=== PATIENT | male | born 1990 | race Caucasian/White ===

== ENCOUNTER 2017-12-26 13:58 | Emergency (ER) | payer OTHER ==
[2017-12-26] MEDS ORDERED: NS 1,000 ML IV ONE (14:12)
--- NOTE | 2017-12-26 14:12 | EDPHY ---
H & P Time Seen by Provider: 12/26/17 14:07 HPI/ROS: CHIEF COMPLAINT: Headache HISTORY OF PRESENT ILLNESS: The patient is a 27-year-old male with a remote history of migraine headaches who presents emergency department with new onset headache this morning. The patient states that he was in class when he began to have some strange vision. He felt as though there was a see like shape that stayed in the same place in both eyes. This lasted for about 20-30 minutes. He then developed a headache. The headache was right side of his head radiating to the right posterior part of his head. This is typical of his previous migraine headaches. Patient states he had a brief episode(less than 1 min) of left-sided facial and left hand numbness. This subsequently resolved. Patient was seen at [facility] [employer] [facility] sent to the emergency department for further evaluation. In route patient received both Zofran and Phenergan for nausea and vomiting. The patient states that the medication improved his headache. His headache is now 3/10. No current focal weakness. No neck pain. No fevers or chills. No recent travel. REVIEW OF SYSTEMS: 10 systems were reveiwed and are negative with the exception of the elements mentioned in the history of present illness. Past Medical/Surgical History: Previous migraines Family history: Migraines. No CVA Social history: The patient does not smoke or use drugs Smoking Status: Never smoked Physical Exam: Vitals noted GENERAL: Well-appearing, in no acute distress, alert. HEENT: Eyes normal to inspection, normal pharynx, no signs of dehydration. NECK: Normal, supple. No tenderness to palpation RESPIRATORY: Clear to auscultation bilaterally, no rales, rhonchi or wheezing. CVS: Regular rate and rhythm, no rubs, murmurs, or gallops. ABDOMEN: Soft, nontender, nondistended, no organomegaly. BACK: Normal to inspection, no CVA tenderness. SKIN: Normal color, no rash, warm, dry. No pallor. EXTREMITIES: No pedal edema, no calf tenderness, no Homans sign or cords, no joint swelling. NEURO/PSYCH: Higher functions: Alert and Oriented x3. Normal speech and cognition. Normal mood and affect. Cranial nerves: Normal as tested. Cerebellar: Normal as tested. Good finger to nose, good [id number], normal gait. Peripheral exam: Normal motor exam. Normal sensation. Normal reflexes. Constitutional: Initial Vital Signs Temperature (C) 36.6 C 12/26/17 14:01 Heart Rate 76 12/26/17 14:01 Respiratory Rate 16 12/26/17 14:01 Blood Pressure 159/92 H 12/26/17 14:01 O2 Sat (%) 99 12/26/17 14:01 O2 Delivery Mode Room Air Allergies/Adverse Reactions: No Known Allergies Allergy (Unverified 12/26/17 14:01) Home Medications: Medication Instructions Recorded NK [No Known Home Meds] 12/26/17 Medical Decision Making - Diagnostics Imaging Results: Imaging Impressions Head CT 12/26/17 14:12 Impression: 1. Moderate bilateral sinusitis. 2. Otherwise normal CT brain without contrast. Findings and recommendations discussed with Emergency Department physician, Dr. Anirudh Esteban at 1456 hours on December 26, 2017. Final report concurs with initial preliminary interpretation. Brain MRI 12/26/17 15:00 Impression: 1. Moderate bilateral sinusitis. 2. No acute infarct, acute hemorrhage, hydrocephalus or mass effect. 3. Bilateral occipital periventricular/periatrial and right frontal subcortical nonspecific hyperintense T2/FLAIR signal abnormalities which may represent migraine-related sequela, atypical demyelinating disease, or microvascular ischemic gliosis. Findings and recommendations discussed with Emergency Department physician, Jessica Zaman at 1702 hour, 12/26/2017. Final report concurs with initial preliminary interpretation. ED Course/Re-evaluation: I met EMS on arrival. I took report from the it operations manager. In the emergency department I discussed possible etiologies with the patient. I answered all his questions. The patient did not want any further medication at this time. Patient consented to laboratory studies and imaging. 14 50: I rechecked the patient. He states his headache is the same. He has not want any pain medication. No focal findings on his neurologic exam. Awaiting CT results. CT: Please refer the dictated report. No acute disease noted. I discussed the results with the patient. I answered all his questions. He still is having a headache. No focal deficits. MRI was ordered. MRI without contrast: Please refer the dictated report by Dr. Green. No signs of CVA. On recheck the patient was doing well. He had no headache. I think subarachnoid hemorrhage is unlikely. Patient will follow up with Neurology for MRI findings. I discussed the results with the patient. I answered all his questions. He is given warnings prior to leaving. Differential Diagnosis: My differential includes but is not limited to migraine, subarachnoid hemorrhage , subdural hematoma, epidural hematoma, dissection, aneurysm, CVA, retinal detachment - Data Points Laboratory Results: Laboratory Results 12/26/17 14:30 12/26/17 13:58 12/26/17 12/26/17 12/26/17 14:30 13:58 13:58 WBC 11.06 10^3/uL H 10^3/uL (3.80-9.50) RBC 5.19 10^6/uL 10^6/uL (4.40-6.38) Hgb 14.7 g/dL g/dL (13.7-17.5) Hct 42.9 % % (40.0-51.0) MCV 82.7 fL fL (81.5-99.8) MCH 28.3 pg pg (27.9-34.1) MCHC 34.3 g/dL g/dL (32.4-36.7) RDW 11.9 % % (11.5-15.2) Plt Count 254 10^3/uL 10^3/uL (150-400) MPV 10.0 fL fL (8.7-11.7) Neut % (Auto) 75.8 % H % (39.3-74.2) Lymph % (Auto) 15.5 % % (15.0-45.0) [place] % (Auto) 4.0 % L % (4.5-13.0) Eos % (Auto) 4.0 % % (0.6-7.6) Baso % (Auto) 0.4 % % (0.3-1.7) Nucleat RBC Rel Count 0.0 % % (0.0-0.2) Absolute Neuts (auto) 8.40 10^3/uL H 10^3/uL (1.70-6.50) Absolute Lymphs (auto) 1.71 10^3/uL 10^3/uL (1.00-3.00) Absolute Monos (auto) 0.44 10^3/uL 10^3/uL (0.30-0.80) Absolute Eos (auto) 0.44 10^3/uL H 10^3/uL (0.03-0.40) Absolute Basos (auto) 0.04 10^3/uL 10^3/uL (0.02-0.10) Absolute Nucleated RBC 0.00 10^3/uL 10^3/uL (0-0.01) Immature Gran % 0.3 % % (0.0-1.1) Immature Gran # 0.03 10^3/uL 10^3/uL (0.00-0.10) PT 13.1 SEC SEC (12.0-15.0) INR 0.97 (0.83-1.16) APTT 30.6 SEC SEC (23.0-38.0) Sodium 139 mEq/L mEq/L (135-145) Potassium 4.0 mEq/L mEq/L (3.3-5.0) Chloride 101 mEq/L mEq/L (97-110) Carbon Dioxide 25 mEq/l mEq/l (22-31) Anion Gap 13 mEq/L mEq/L (6-14) BUN 15 mg/dL mg/dL (7-23) Creatinine 0.8 mg/dL mg/dL (0.7-1.3) Estimated GFR > 60 Glucose 106 mg/dL H mg/dL (70-100) Calcium 10.3 mg/dL mg/dL (8.5-10.4) Medications Given: Discontinued Medications Sodium Chloride (Ns) 1,000 mls @ 0 mls/hr IV ONCE ONE; Wide Open PRN Reason: Protocol Stop: 12/26/17 14:13 Last Admin: 12/26/17 14:18 Dose: 1,000 mls Ketorolac Tromethamine (Toradol) 30 mg IVP EDNOW ONE Stop: 12/26/17 15:01 Last Admin: 12/26/17 15:07 Dose: 30 mg Departure - Departure Disposition: Home, Routine, Self-Care Clinical Impression: Headache Qualifiers: Headache type: unspecified Headache chronicity pattern: acute headache Intractability: not intractable Qualified Code(s): R51 - Headache Condition: Good Instructions: Acute Headache (ED) Additional Instructions: Return with increasing headache, weakness, numbness or any other concerns. You need follow-up with Neurology. You have been given contact information. Referrals: Mary Lira MD [Medical Doctor] - 5-7 days, call for appt.
[2017-12-26 14:28] LABS: INR 0.97 (0.83-1.16); PROTIME(PATIENT) 13.1 SEC (12.0-15.0)
[2017-12-26 14:36] LABS: PLATELET COUNT 254 10^3/uL (150-400)
[2017-12-26] MEDS ORDERED: KETOROLAC 30 MG/1 ML SDV IVP ONE (15:00)
[2017-12-26 18:59] VITALS: BP 122/70
== END 2017-12-26 19:03 | disposition home or self-care (01) ==
DX: J01.90 Acute sinusitis, unspecified (principal); E86.9 Volume depletion, unspecified
CPT/HCPCS: 96374; J1885